=== PATIENT | male | born 1970 | race Caucasian/White ===

== ENCOUNTER 2018-09-14 18:55 | Inpatient (IN) | payer MEDICARE, OTHER ==
[2018-09-14] MEDS ORDERED: Sodium Chloride 0.9% 1,000 ML IV SCH ×2 (19:00→20:05)
[2018-09-14] MEDS ORDERED: Insulin Regular, Human 100 Units/ML 3 ML Vial IVPUSH ONE (19:08)
[2018-09-14] MEDS ORDERED: Insulin Regular, Human 100 Units/ML 3 ML Vial ONE (19:10)
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
[2018-09-14] MEDS ORDERED: cefTRIAXone 2 GM in Sodium Chloride 0.9% 50 ML IV ONE (19:31)
[2018-09-14] MEDS ORDERED: Levofloxacin/Dextrose 5%-Water 750 MG in Premix Bag 1 BAG IV ONE (19:31)
--- NOTE | 2018-09-14 19:46 | CRLCR ---
INDICATION: Cough, hypoxia. TECHNIQUE: Chest radiograph 1 view COMPARISON: None FINDINGS: Airspace opacification at the right lung base. Lesser degree of patchy opacification of the left upper lung zone. No definite pleural effusions or pneumothorax. Heart and mediastinal contours are within normal limits. No displaced rib fracture deformity. IMPRESSION: 1. Likely multifocal pneumonia with most significant opacification at the right lung base. Lesser degree of infiltrate suspected in the left upper lobe. Recommend imaging followup in 2-4 weeks to confirm complete resolution. Dictated by Jean Claude Jolly MD @ 09/14/2018 7:45:23 PM Dictated by: Jean Claude Jolly MD @ 09/14/2018 19:45:29 (Electronically Signed)
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
[2018-09-14] MEDS ORDERED: Ondansetron 4 MG Tab.DIS PO PRN (21:27)
[2018-09-14] MEDS ORDERED: 50% Dextrose in Water 50 ML Syringe IVPUSH PRN (21:27)
[2018-09-14] MEDS ORDERED: Acetaminophen 650 MG Supp RECTAL PRN (21:27)
[2018-09-14] MEDS ORDERED: Morphine 2 MG/ML Syringe IVPUSH PRN (21:27)
[2018-09-14] MEDS ORDERED: LORazepam 2 MG/ML SDV IVPUSH PRN (21:27)
[2018-09-14] MEDS ORDERED: Ondansetron 4 MG/2 ML SDV IV PRN (21:27)
[2018-09-14] MEDS ORDERED: Polyethylene Glycol 3350 Powder 17 GM Packet PO PRN (21:27)
[2018-09-14] MEDS ORDERED: Albuterol 0.083% 2.5 MG/3 ML Neb Soln NEB PRN (21:27)
[2018-09-14] MEDS: Sodium Chloride 0.9% 1,000 ML IV SCH (21:40)
[2018-09-14] MEDS: Albuterol/Ipratropium 3.0-0.5 MG/3 ML Neb Soln NEB SCH (21:53)
[2018-09-14] MEDS: Pantoprazole 40 MG Vial IV SCH (22:12)
[2018-09-14] MEDS: Acetaminophen 325 MG Tab PO PRN (23:20)
[2018-09-15] MEDS: Sodium Chloride 0.9% 1,000 ML IV SCH (05:20)
[2018-09-15] MEDS: Albuterol/Ipratropium 3.0-0.5 MG/3 ML Neb Soln NEB SCH ×4 (07:32→21:14)
[2018-09-15] MEDS: Enoxaparin 40 MG/0.4 ML Syringe SUBCUT SCH (09:00)
[2018-09-15] MEDS: Pantoprazole 40 MG Vial IV SCH ×2 (09:02→21:22)
--- NOTE | 2018-09-15 09:09 | PCM.PN ---
- General Info Date of Service: 09/15/18 Subjective Update: overnight the patient has remained tachycardic. Lactic acid levels trended down. Blood sugars have trended down. Anion gap is slowly improving. He reports ongoing feeling of generally not feeling well. He does report mild to moderate generalized abdominal pain. He continues to feel short of breath. He has been coughing and produces some sputum. He has not had any fevers. Functional Status: Reports: Pain Controlled - Review of Systems General: Reports: Weakness Pulmonary: Reports: Shortness of Breath, Cough Gastrointestinal: Reports: Abdominal Pain. Denies: Nausea - Patient Data Vitals - Most Recent: Last Vital Signs Temp 36.2 C 09/15/18 07:00 Pulse 123 H 09/15/18 07:33 Resp 34 H 09/15/18 07:00 BP 152/91 H 09/15/18 07:00 Pulse Ox 95 09/15/18 07:00 Weight - Most Recent: 72.62 kg I&O - Last 24 Hours: Intake & Output 09/14/18 09/15/18 09/15/18 22:59 06:59 14:59 Intake Total 1000 Output Total 775 300 Balance 225 -300 Lab Results Last 24 Hours: Laboratory Results - last 24 hr 09/14/18 09/14/18 09/14/18 Range/Units 18:50 18:50 19:00 WBC 32.8 H* (4.5-11.0) K/uL RBC 5.33 (4.30-5.90) M/uL Hgb 14.6 (12.0-15.0) g/dL Hct 46.1 (40.0-54.0) % MCV 87 (80-98) fL MCH 27 (27-31) pg MCHC 32 (32-36) % Plt Count 778 H (150-400) K/uL Add Manual Diff Yes Neutrophils % (Manual) 79 H (36-66) % Band Neutrophils % 7 (5-11) % Lymphocytes % (Manual) 3 L (24-44) % Monocytes % (Manual) 11 H (2-6) % Puncture Site Lt brachial ABG pH 6.970 L* (7.350-7.450) ABG pCO2 12.2 L* (35.0-42.0) mmHg ABG pO2 97.7 (75.0-100.0) mmHg ABG HCO3 2.7 L (22.0-26.0) mmol/L ABG Total CO2 2.7 L (23.0-27.0) mmol/L ABG O2 Saturation 93.6 L (95.0-98.0) % ABG O2 Content 19.3 (15.0-23.0) %vol ABG Base Excess -30.1 mm/L ABG Hemoglobin 14.9 (13.5-18.0) g/dL ABG Oxyhemoglobin 92.2 % ABG Carboxyhemoglobin 0.5 (0.0-1.6) % ABG Methemoglobin 1.0 % Ton Test N/a O2 Delivery Device Nasal cannula Oxygen Flow Rate 0 L Sodium (140-148) mmol/L Potassium (3.6-5.2) mmol/L Chloride (100-108) mmol/L Carbon Dioxide (21-32) mmol/L Anion Gap (5.0-14.0) mmol/L BUN (7-18) mg/dL Creatinine (0.8-1.3) mg/dL Est Cr Clr Drug Dosing mL/min Estimated GFR (MDRD) (>60) Glucose (74-106) mg/dL Lactic Acid (0.4-2.0) mmol/L Calcium (8.5-10.1) mg/dL Magnesium 3.0 H (1.8-2.4) mg/dL Total Bilirubin (0.2-1.0) mg/dL AST (15-37) U/L ALT (12-78) U/L Alkaline Phosphatase (46-116) U/L Total Protein (6.4-8.2) g/dL Albumin (3.4-5.0) g/dL Globulin (2.3-3.5) g/dL Albumin/Globulin Ratio (1.2-2.2) Urine Color Urine Appearance Urine pH (4.5-8.0) Ur Specific [place] (1.008-1.030) Urine Protein (NEGATIVE) mg/dL Urine Glucose (UA) (NEGATIVE) mg/dL Urine Ketones (NEGATIVE) mg/dL Urine Occult Blood (NEGATIVE) Urine Nitrite (NEGAITVE) Urine Bilirubin (NEGATIVE) Urine Urobilinogen (NORMAL) mg/dL Ur Leukocyte Esterase (NEGATIVE) Urine RBC (0-5) Urine WBC (0-5) Ur Epithelial Cells Amorphous Sediment Urine Bacteria Urine Mucus Ketones (NEGATIVE) 09/14/18 09/14/18 09/14/18 Range/Units 19:00 19:08 19:08 WBC (4.5-11.0) K/uL RBC (4.30-5.90) M/uL Hgb (12.0-15.0) g/dL Hct (40.0-54.0) % MCV (80-98) fL MCH (27-31) pg MCHC (32-36) % Plt Count (150-400) K/uL Add Manual Diff Neutrophils % (Manual) (36-66) % Band Neutrophils % (5-11) % Lymphocytes % (Manual) (24-44) % Monocytes % (Manual) (2-6) % Puncture Site ABG pH (7.350-7.450) ABG pCO2 (35.0-42.0) mmHg ABG pO2 (75.0-100.0) mmHg ABG HCO3 (22.0-26.0) mmol/L ABG Total CO2 (23.0-27.0) mmol/L ABG O2 Saturation (95.0-98.0) % ABG O2 Content (15.0-23.0) %vol ABG Base Excess mm/L ABG Hemoglobin (13.5-18.0) g/dL ABG Oxyhemoglobin % ABG Carboxyhemoglobin (0.0-1.6) % ABG Methemoglobin % Ton Test O2 Delivery Device Oxygen Flow Rate L Sodium 124 L (140-148) mmol/L Potassium 4.8 (3.6-5.2) mmol/L Chloride 85 L (100-108) mmol/L Carbon Dioxide 6 L (21-32) mmol/L Anion Gap 37.8 H (5.0-14.0) mmol/L BUN 33 H (7-18) mg/dL Creatinine 1.5 H (0.8-1.3) mg/dL Est Cr Clr Drug Dosing 54.03 mL/min Estimated GFR (MDRD) 50 L (>60) Glucose 613 H* (74-106) mg/dL Lactic Acid 2.2 H (0.4-2.0) mmol/L Calcium 10.4 H (8.5-10.1) mg/dL Magnesium (1.8-2.4) mg/dL Total Bilirubin 0.7 (0.2-1.0) mg/dL AST 23 (15-37) U/L ALT 17 (12-78) U/L Alkaline Phosphatase 223 H (46-116) U/L Total Protein 9.1 H (6.4-8.2) g/dL Albumin 2.1 L (3.4-5.0) g/dL Globulin 7.0 H (2.3-3.5) g/dL Albumin/Globulin Ratio 0.3 L (1.2-2.2) Urine Color Urine Appearance Urine pH (4.5-8.0) Ur Specific [place] (1.008-1.030) Urine Protein (NEGATIVE) mg/dL Urine Glucose (UA) (NEGATIVE) mg/dL Urine Ketones (NEGATIVE) mg/dL Urine Occult Blood (NEGATIVE) Urine Nitrite (NEGAITVE) Urine Bilirubin (NEGATIVE) Urine Urobilinogen (NORMAL) mg/dL Ur Leukocyte Esterase (NEGATIVE) Urine RBC (0-5) Urine WBC (0-5) Ur Epithelial Cells Amorphous Sediment Urine Bacteria Urine Mucus Ketones Large H (NEGATIVE) 09/14/18 09/14/18 09/14/18 Range/Units 21:52 22:02 22:02 WBC (4.5-11.0) K/uL RBC (4.30-5.90) M/uL Hgb (12.0-15.0) g/dL Hct (40.0-54.0) % MCV (80-98) fL MCH (27-31) pg MCHC (32-36) % Plt Count (150-400) K/uL Add Manual Diff Neutrophils % (Manual) (36-66) % Band Neutrophils % (5-11) % Lymphocytes % (Manual) (24-44) % Monocytes % (Manual) (2-6) % Puncture Site ABG pH (7.350-7.450) ABG pCO2 (35.0-42.0) mmHg ABG pO2 (75.0-100.0) mmHg ABG HCO3 (22.0-26.0) mmol/L ABG Total CO2 (23.0-27.0) mmol/L ABG O2 Saturation (95.0-98.0) % ABG O2 Content (15.0-23.0) %vol ABG Base Excess mm/L ABG Hemoglobin (13.5-18.0) g/dL ABG Oxyhemoglobin % ABG Carboxyhemoglobin (0.0-1.6) % ABG Methemoglobin % Ton Test O2 Delivery Device Oxygen Flow Rate L Sodium 127 L (140-148) mmol/L Potassium 4.7 (3.6-5.2) mmol/L Chloride 92 L (100-108) mmol/L Carbon Dioxide 6 L (21-32) mmol/L Anion Gap 33.7 H (5.0-14.0) mmol/L BUN 39 H (7-18) mg/dL Creatinine 1.5 H (0.8-1.3) mg/dL Est Cr Clr Drug Dosing 53.76 mL/min Estimated GFR (MDRD) 50 L (>60) Glucose 536 H* (74-106) mg/dL Lactic Acid 2.2 H (0.4-2.0) mmol/L Calcium 9.1 (8.5-10.1) mg/dL Magnesium (1.8-2.4) mg/dL Total Bilirubin (0.2-1.0) mg/dL AST (15-37) U/L ALT (12-78) U/L Alkaline Phosphatase (46-116) U/L Total Protein (6.4-8.2) g/dL Albumin (3.4-5.0) g/dL Globulin (2.3-3.5) g/dL Albumin/Globulin Ratio (1.2-2.2) Urine Color Yellow Urine Appearance Slightly cloudy Urine pH 5.0 (4.5-8.0) Ur Specific [place] 1.020 (1.008-1.030) Urine Protein 30 H (NEGATIVE) mg/dL Urine Glucose (UA) >1000 H (NEGATIVE) mg/dL Urine Ketones 150 H (NEGATIVE) mg/dL Urine Occult Blood Large (NEGATIVE) Urine Nitrite Negative (NEGAITVE) Urine Bilirubin Negative (NEGATIVE) Urine Urobilinogen Normal (NORMAL) mg/dL Ur Leukocyte Esterase Negative (NEGATIVE) Urine RBC 0-5 (0-5) Urine WBC 0-5 (0-5) Ur Epithelial Cells Rare Amorphous Sediment Few Urine Bacteria Moderate Urine Mucus Few Ketones (NEGATIVE) 09/15/18 09/15/18 09/15/18 Range/Units 02:00 02:00 05:57 WBC (4.5-11.0) K/uL RBC (4.30-5.90) M/uL Hgb (12.0-15.0) g/dL Hct (40.0-54.0) % MCV (80-98) fL MCH (27-31) pg MCHC (32-36) % Plt Count (150-400) K/uL Add Manual Diff Neutrophils % (Manual) (36-66) % Band Neutrophils % (5-11) % Lymphocytes % (Manual) (24-44) % Monocytes % (Manual) (2-6) % Puncture Site ABG pH (7.350-7.450) ABG pCO2 (35.0-42.0) mmHg ABG pO2 (75.0-100.0) mmHg ABG HCO3 (22.0-26.0) mmol/L ABG Total CO2 (23.0-27.0) mmol/L ABG O2 Saturation (95.0-98.0) % ABG O2 Content (15.0-23.0) %vol ABG Base Excess mm/L ABG Hemoglobin (13.5-18.0) g/dL ABG Oxyhemoglobin % ABG Carboxyhemoglobin (0.0-1.6) % ABG Methemoglobin % Ton Test O2 Delivery Device Oxygen Flow Rate L Sodium 126 L 126 L (140-148) mmol/L Potassium 4.4 4.1 (3.6-5.2) mmol/L Chloride 95 L 98 L (100-108) mmol/L Carbon Dioxide 9 L 10 L (21-32) mmol/L Anion Gap 26.4 H 22.1 H (5.0-14.0) mmol/L BUN 44 H 49 H (7-18) mg/dL Creatinine 1.5 H 1.6 H (0.8-1.3) mg/dL Est Cr Clr Drug Dosing 53.76 50.40 mL/min Estimated GFR (MDRD) 50 L 46 L (>60) Glucose 332 H 153 H (74-106) mg/dL Lactic Acid 1.9 (0.4-2.0) mmol/L Calcium 8.8 8.8 (8.5-10.1) mg/dL Magnesium (1.8-2.4) mg/dL Total Bilirubin (0.2-1.0) mg/dL AST (15-37) U/L ALT (12-78) U/L Alkaline Phosphatase (46-116) U/L Total Protein (6.4-8.2) g/dL Albumin (3.4-5.0) g/dL Globulin (2.3-3.5) g/dL Albumin/Globulin Ratio (1.2-2.2) Urine Color Urine Appearance Urine pH (4.5-8.0) Ur Specific [place] (1.008-1.030) Urine Protein (NEGATIVE) mg/dL Urine Glucose (UA) (NEGATIVE) mg/dL Urine Ketones (NEGATIVE) mg/dL Urine Occult Blood (NEGATIVE) Urine Nitrite (NEGAITVE) Urine Bilirubin (NEGATIVE) Urine Urobilinogen (NORMAL) mg/dL Ur Leukocyte Esterase (NEGATIVE) Urine RBC (0-5) Urine WBC (0-5) Ur Epithelial Cells Amorphous Sediment Urine Bacteria Urine Mucus Ketones (NEGATIVE) 09/15/18 Range/Units 05:57 WBC (4.5-11.0) K/uL RBC (4.30-5.90) M/uL Hgb (12.0-15.0) g/dL Hct (40.0-54.0) % MCV (80-98) fL MCH (27-31) pg MCHC (32-36) % Plt Count (150-400) K/uL Add Manual Diff Neutrophils % (Manual) (36-66) % Band Neutrophils % (5-11) % Lymphocytes % (Manual) (24-44) % Monocytes % (Manual) (2-6) % Puncture Site ABG pH (7.350-7.450) ABG pCO2 (35.0-42.0) mmHg ABG pO2 (75.0-100.0) mmHg ABG HCO3 (22.0-26.0) mmol/L ABG Total CO2 (23.0-27.0) mmol/L ABG O2 Saturation (95.0-98.0) % ABG O2 Content (15.0-23.0) %vol ABG Base Excess mm/L ABG Hemoglobin (13.5-18.0) g/dL ABG Oxyhemoglobin % ABG Carboxyhemoglobin (0.0-1.6) % ABG Methemoglobin % Ton Test O2 Delivery Device Oxygen Flow Rate L Sodium (140-148) mmol/L Potassium (3.6-5.2) mmol/L Chloride (100-108) mmol/L Carbon Dioxide (21-32) mmol/L Anion Gap (5.0-14.0) mmol/L BUN (7-18) mg/dL Creatinine (0.8-1.3) mg/dL Est Cr Clr Drug Dosing mL/min Estimated GFR (MDRD) (>60) Glucose (74-106) mg/dL Lactic Acid 1.7 (0.4-2.0) mmol/L Calcium (8.5-10.1) mg/dL Magnesium (1.8-2.4) mg/dL Total Bilirubin (0.2-1.0) mg/dL AST (15-37) U/L ALT (12-78) U/L Alkaline Phosphatase (46-116) U/L Total Protein (6.4-8.2) g/dL Albumin (3.4-5.0) g/dL Globulin (2.3-3.5) g/dL Albumin/Globulin Ratio (1.2-2.2) Urine Color Urine Appearance Urine pH (4.5-8.0) Ur Specific [place] (1.008-1.030) Urine Protein (NEGATIVE) mg/dL Urine Glucose (UA) (NEGATIVE) mg/dL Urine Ketones (NEGATIVE) mg/dL Urine Occult Blood (NEGATIVE) Urine Nitrite (NEGAITVE) Urine Bilirubin (NEGATIVE) Urine Urobilinogen (NORMAL) mg/dL Ur Leukocyte Esterase (NEGATIVE) Urine RBC (0-5) Urine WBC (0-5) Ur Epithelial Cells Amorphous Sediment Urine Bacteria Urine Mucus Ketones (NEGATIVE) Walter Results Last 24 Hours: Microbiology 09/15/18 01:45 Gram Stain - Final Sputum - Expectorated Med Orders - Current: Current Medications Acetaminophen (Tylenol) 650 mg PO Q4H PRN PRN Reason: Pain (Mild 1-3)/fever Last Admin: 09/14/18 23:20 Dose: 650 mg Acetaminophen (Tylenol) 650 mg RECTAL Q4H PRN PRN Reason: Mild pain/fever Albuterol (Proventil Neb Soln) 2.5 mg NEB Q4H PRN PRN Reason: Shortness Of Breath/wheezing Albuterol/Ipratropium (Duoneb 3.0-0.5 Mg/3 Ml) 3 ml NEB QIDRT [facility] Last Admin: 09/15/18 07:32 Dose: 3 ml Dextrose/Water (Dextrose 50% In Water) 50 ml IVPUSH ONETIME PRN PRN Reason: Blood Glucose Enoxaparin Sodium (Lovenox) 40 mg SUBCUT DAILY [facility] Last Admin: 09/15/18 09:00 Dose: 40 mg Levofloxacin/Dextrose 750 mg/ (Premix) 150 mls @ 100 mls/hr IV Q24H [facility] Sodium Chloride (Normal Saline) 1,000 mls @ 125 mls/hr IV ASDIRECTED [facility] Last Admin: 09/15/18 05:20 Dose: 125 mls/hr Insulin Human Regular 100 unit (/ Sodium Chloride) 100 mls @ 0.5 mls/hr IV TITRATE [facility]; Protocol Last Titration: 09/15/18 08:58 Dose: 3 unit/hr, 3 mls/hr Ceftriaxone Sodium 2 gm/ (Sodium Chloride) 50 mls @ 100 mls/hr IV Q24H [facility] Lorazepam (Ativan) 0.5 mg IVPUSH Q4H PRN PRN Reason: Anxiety Morphine Sulfate (Morphine) 2 mg IVPUSH Q2H PRN PRN Reason: Pain (severe 7-10) Ondansetron HCl (Zofran Odt) 4 mg PO Q6H PRN PRN Reason: Nausea able to take PO Ondansetron HCl (Zofran) 4 mg IV Q6H PRN PRN Reason: Nausea/Vomiting Pantoprazole Sodium (Protonix Iv) 40 mg IV Q12H [facility] Last Admin: 09/15/18 09:02 Dose: 40 mg Polyethylene Glycol (Miralax) 17 gm PO DAILY PRN PRN Reason: Constipation Senna/Docusate Sodium (Senna Plus) 1 tab PO BID PRN PRN Reason: Constipation Discontinued Medications Ceftriaxone Sodium 2 gm/ (Sodium Chloride) 50 mls @ 100 mls/hr IV ONETIME ONE Stop: 09/14/18 20:00 Last Admin: 09/14/18 19:55 Dose: 100 mls/hr Levofloxacin/Dextrose 750 mg/ (Premix) 150 mls @ 100 mls/hr IV ONETIME ONE Stop: 09/14/18 21:00 Last Admin: 09/14/18 19:54 Dose: 100 mls/hr Sodium Chloride (Normal Saline) 1,000 mls @ 999 mls/hr IV ASDIRECTED [facility] Last Admin: 09/14/18 19:10 Dose: 999 mls/hr Sodium Chloride (Normal Saline) 1,000 mls @ 999 mls/hr IV ASDIRECTED [facility] Last Admin: 09/14/18 20:10 Dose: 999 mls/hr Insulin Human Regular 100 unit (/ Sodium Chloride) 100 mls @ 0.5 mls/hr IV TITRATE [facility]; Protocol Last Titration: 09/15/18 08:04 Dose: 6 unit/hr, 6 mls/hr Insulin Human Regular (Humulin R) 8 unit IVPUSH ONETIME ONE Stop: 09/14/18 19:09 Last Admin: 09/14/18 19:16 Dose: 8 units Insulin Human Regular (Humulin R) Confirm Administered Dose 300 unit .ROUTE .STK -MED ONE Stop: 09/14/18 19:11 Last Admin: 09/14/18 19:15 Dose: Not Given - Exam Quality Assessment: No: Supplemental Oxygen General: Alert, Oriented, Cooperative, No Acute Distress HEENT: Pupils Equal Neck: Supple. No: JVD Lungs: Crackles (right lung base and mid lung, also left mid lung anteriorly ). No: Normal Respiratory Effort (increased work of breathing ) Cardiovascular: Regular Rhythm, Tachycardia GI/Abdominal Exam: Normal Bowel Sounds, Soft, No Distention, Tender (generalized ) Extremities: No Pedal Edema. No: Increased Warmth Skin: Warm, Dry Psy/Mental Status: Alert, Normal Affect - Problem List & Annotations (1) DKA (diabetic ketoacidoses) SNOMED Code(s): 117810186, 331789391 Code(s): E13.10 - OTH DIABETES MELLITUS WITH KETOACIDOSIS WITHOUT COMA Status: Acute Current Visit: Yes Qualifiers: Diabetes mellitus type: type 2 Diabetes mellitus complication detail: without coma Qualified Code(s): E11.10 - Type 2 diabetes mellitus with ketoacidosis without coma (2) Metabolic acidosis due to diabetes mellitus SNOMED Code(s): 561300279 Code(s): E11.69 - TYPE 2 DIABETES MELLITUS WITH OTHER SPECIFIED COMPLICATION ; E87.2 - ACIDOSIS Status: Acute Current Visit: Yes (3) Bilateral pneumonia SNOMED Code(s): 838323451 Code(s): J18.9 - PNEUMONIA, UNSPECIFIED ORGANISM Status: Acute Current Visit: Yes Qualifiers: Pneumonia type: due to unspecified organism Lung location: unspecified part of lung Qualified Code(s): J18.9 - Pneumonia, unspecified organism (4) Sepsis SNOMED Code(s): 41810721 Code(s): A41.9 - SEPSIS, UNSPECIFIED ORGANISM Status: Acute Current Visit : Yes Qualifiers: Sepsis type: sepsis due to unspecified organism Qualified Code(s): A41.9 - Sepsis, unspecified organism (5) Acute kidney injury SNOMED Code(s): 46734528 Code(s): N17.9 - ACUTE KIDNEY FAILURE, UNSPECIFIED Status: Acute Current Visit: Yes - Problem List Review Problem List Initiated/Reviewed/Updated: Yes - My Orders Last 24 Hours: My Active Orders 09/14/18 20:22 Resuscitation Status Routine 09/14/18 20:48 Communication Order [RC] ASDIRECTED Diabetes Education [RC] Click to Edit Notify Provider [RC] PRN 09/14/18 21:27 Patient Status [ADT] Routine Bedrest Bedside Commode [RC] ASDIRECTED Blood Glucose Check, Bedside [RC] Q1H Cardiac Monitoring [RC] Q6H Diabetes Education [RC] Click to Edit Intake and Output [RC] QSHIFT Notify Provider Vital Signs [RC] ASDIRECTED Oxygen Therapy [RC] PRN Pulse Oximetry [RC] CONTINUOUS RT Aerosol Therapy [RC] ASDIRECTED Up With Assistance [RC] ASDIRECTED VTE/DVT Education [RC] Per Unit Routine Vital Signs [RC] Q1HR Acetaminophen [Tylenol] 650 mg PO Q4H PRN Acetaminophen [Tylenol] 650 mg RECTAL Q4H PRN Albuterol [Proventil Neb Soln] 2.5 mg NEB Q4H PRN Dextrose 50% in Water 50 ml IVPUSH ONETIME PRN Docusate Sodium/Sennosides [Senna Plus] 1 tab PO BID PRN LORazepam [Ativan] 0.5 mg IVPUSH Q4H PRN Morphine 2 mg IVPUSH Q2H PRN Ondansetron [Zofran ODT] 4 mg PO Q6H PRN Ondansetron [Zofran] 4 mg IV Q6H PRN Polyethylene Glycol 3350 [MiraLAX] 17 gm PO DAILY PRN Sodium Chloride 0.9% [Normal Saline] 1,000 ml IV ASDIRECTED 09/14/18 21:30 Pantoprazole [ProTONIX IV] 40 mg IV Q12H 09/14/18 21:45 Albuterol/Ipratropium [DuoNeb 3.0-0.5 MG/3 ML] 3 ml NEB QIDRT 09/15/18 01:45 CULTURE RESPIRATORY + SMEAR [RM] Routine 09/15/18 02:15 Insulin Regular, Human [HumuLIN R] 100 unit Sodium Chloride 0.9% [Normal Saline] 99 ml IV TITRATE 09/15/18 09:00 Enoxaparin [Lovenox] 40 mg SUBCUT DAILY 09/15/18 09:07 oxyCODONE 5 mg PO Q4H PRN RT Acapella [RESPCARE] Routine 09/15/18 10:00 BASIC METABOLIC PANEL,BMP [CHEM] Q4H CBC W/O DIFF,HEMOGRAM [HEME] Routine (1) GLYCOSYLATED HEMOGLOBIN,HGBA1C [CHEM] Routine Vancomycin 1 gm Sodium Chloride 0.9% [Normal Saline] 250 ml IV Q12H 09/15/18 14:00 BASIC METABOLIC PANEL,BMP [CHEM] Q4H 09/15/18 18:00 cefTRIAXone [Rocephin] 2 gm Sodium Chloride 0.9% [Normal Saline] 50 ml IV Q24H 09/15/18 20:00 Levofloxacin/Dextrose 5%-Water [Levaquin in D5W 750 MG/150 ML] 750 mg Premix Bag 1 bag IV Q24H 09/15/18 Lunch Clear Liquid Diet [DIET] 09/16/18 05:00 CBC W/O DIFF,HEMOGRAM [HEME] Timed (1) COMPREHENSIVE METABOLIC PN,CMP [CHEM] Timed - Plan Plan:: ASSESSMENT AND PLAN - Severe diabetic ketoacidosis - anion gap and blood sugars have been steadily improving but an Does remain elevated. Symptomatically he is feeling a little better but still has some abdominal pain and tachypnea. Metabolic acidosis has been slowly improving. A1c was nearly 12. -Insulin drip -IV fluids with D5 normal saline and potassium -Every hour blood sugars -BMP every 4 hours, replace electrolytes as indicated -Transition to subcutaneous insulin when appropriate Bilateral pneumonia with sepsis - white blood cell count has trended down and lactic acidosis has resolved. He has not required supplemental oxygen but has been tachypneic. Gram stain from sputum sample revealed moderate gram-positive cocci. -Continue levofloxacin and ceftriaxone -add vancomycin -follow-up sputum culture -Follow-up blood cultures -Scheduled and as needed nebulizers -Supplement oxygen if needed Acute kidney injury - creatinine is 1.5 and I suspect this is probably twice his normal creatinine level. level has remained stable overnight and I'm still hopeful that the level will improve once his DKA is more optimally treated. -Management as above and repeat labs in the morning Maintenance issues - - DVT prophylaxis - enoxaparin - GI prophylaxis - PPI - Nutrition - clear liquids - Smalls catheter - not indicated at this time Disposition - I would anticipate discharge home after the hospital stay Omar Lombardi M.D.
[2018-09-15] MEDS: oxyCODONE 5 MG Tab PO PRN ×4 (09:32→23:38)
[2018-09-15 10:14] LABS: HEMOGLOBIN A1C 11.7 % (4.5-6.2)
[2018-09-15] MEDS: Dextrose 5%-0.9% NaCl with KCl 1,000 ML IV SCH ×2 (10:42→19:05)
[2018-09-15] MEDS: Acetaminophen 325 MG Tab PO PRN ×2 (14:18→23:38)
[2018-09-15] MEDS ORDERED: cefTRIAXone 2 GM in Sodium Chloride 0.9% 50 ML IV SCH ×2 (18:00→21:00)
[2018-09-15] MEDS ORDERED: Levofloxacin/Dextrose 5%-Water 750 MG in Premix Bag 1 BAG IV SCH (20:00)
[2018-09-15] MEDS ORDERED: Potassium Chloride 20 MEQ Tab.ER PO ONE (20:59)
[2018-09-15] MEDS ORDERED: Lidocaine 2% Jelly 10 ML Urojet MUCMEM ONE (22:59)
[2018-09-15] MEDS ORDERED: Lidocaine 2% Jelly 10 ML Urojet ONE (23:11)
[2018-09-16] MEDS: Dextrose 5%-0.9% NaCl with KCl 1,000 ML IV SCH ×2 (02:57→11:29)
[2018-09-16] MEDS: Albuterol/Ipratropium 3.0-0.5 MG/3 ML Neb Soln NEB SCH ×2 (07:00→10:36)
[2018-09-16] MEDS: oxyCODONE 5 MG Tab PO PRN (08:48)
[2018-09-16] MEDS: Enoxaparin 40 MG/0.4 ML Syringe SUBCUT SCH (08:50)
[2018-09-16] MEDS: Pantoprazole 40 MG Vial IV SCH (08:50)
[2018-09-16] MEDS ORDERED: Meropenem 1 GM in Sodium Chloride 0.9% 100 ML IV SCH (10:00)
--- NOTE | 2018-09-16 10:52 | CRLCT ---
INDICATION: Pneumonia, abdominal pain. TECHNIQUE: A CT volumetric acquisition was performed of the chest abdomen and pelvis without IV contrast. FINDINGS: CT images demonstrate dense consolidation of the right middle lobe with loss of the air bronchograms. The proximal portion of the medial and lateral segmental bronchi remain patent. Additional masslike areas of alveolar opacity are noted within the lateral aspect of the apical posterior segment left upper lobe and within the posterior medial aspect of both lower lobes as well as the anterior and lateral basal segments of the right lower lobe. The pulmonary vasculature appears of normal size with no evidence of interstitial edema. There is no evidence of cavitation within the airspace changes. Heart size appears normal. There are a few mildly enlarged lymph nodes noted within the peritracheal and subcarinal position. There is no evidence of pericardial fluid. There is a trace amount of pleural fluid within the lower thorax, right greater the left. Within the abdomen the unenhanced liver, spleen and pancreas appear normal. Gallbladder and bile ducts are normal size. The adrenal glands have normal morphology. The kidneys show symmetric enlargement and there is minimal perinephric fluid stranding but there is no evidence of calculus or hydronephrosis and no evidence of a focal masslike change within either kidney. The abdominal aorta appears normal. There is no evidence of retroperitoneal lymphadenopathy within the abdomen and pelvis. The small intestine appears normal. There are a few diverticula within the left colon but no evidence of active diverticulitis. Urinary bladder is contracted around a Smalls catheter. IMPRESSION: 1. Masslike areas of alveolar infiltration within both lungs particularly involving the right middle lobe. Findings suggests a possible atypical fungal pneumonia or perhaps an inflammatory process such as Thomas`s granulomatosis or pulmonary lymphoma. 2. Bilateral renal enlargement which may indicate diabetic nephropathy or acute interstitial nephritis. No evidence of a calculus or hydronephrosis. 3. Note: I discussed the exam findings were Dr. Lombardi at the completion of the study on 09/16/2018 at 10:45 a.m. Please note that all CT scans at this facility use dose modulation, iterative reconstruction, and/or weight-based dosing when appropriate to reduce radiation dose to as low as reasonably achievable. Dictated by Brian Cevallos MD @ Sep 16 2018 10:36AM Signed by Dr. Brian Cevallos @ Sep 16 2018 10:52AM
--- NOTE | 2018-09-16 11:34 | PCM.DCSUM1 ---
Discharge Summary - Hospital Course Brief History: 47-year-old male with history of poorly controlled diabetes mellitus presented with worsening cough, shortness of breath and altered mental state despite outpatient management for pneumonia. He was admitted for management of bilateral pneumonia, diabetic ketoacidosis with severe metabolic acidosis and acute kidney injury. Diagnosis: Stroke: No - Discharge Data Discharge Date: 09/16/18 Discharge Disposition: DC/Tfer to [place] [id number] Condition: Serious - Discharge Diagnosis/Problem(s) (1) DKA (diabetic ketoacidoses) SNOMED Code(s): 612091230, 668398732 ICD Code: E13.10 - OTH DIABETES MELLITUS WITH KETOACIDOSIS WITHOUT COMA Status: Acute Current Visit: Yes Qualifiers: Diabetes mellitus type: type 2 Diabetes mellitus complication detail: without coma Qualified Code(s): E11.10 - Type 2 diabetes mellitus with ketoacidosis without coma (2) Metabolic acidosis due to diabetes mellitus SNOMED Code(s): 994029912 ICD Code: E11.69 - TYPE 2 DIABETES MELLITUS WITH OTHER SPECIFIED COMPLICATION ; E87.2 - ACIDOSIS Status: Acute Current Visit: Yes (3) Bilateral pneumonia SNOMED Code(s): 364214262 ICD Code: J18.9 - PNEUMONIA, UNSPECIFIED ORGANISM Status: Acute Current Visit: Yes Qualifiers: Pneumonia type: due to unspecified organism Lung location: unspecified part of lung Qualified Code(s): J18.9 - Pneumonia, unspecified organism (4) Sepsis SNOMED Code(s): 20222630 ICD Code: A41.9 - SEPSIS, UNSPECIFIED ORGANISM Status: Acute Current Visit: Yes Qualifiers: Sepsis type: sepsis due to unspecified organism Qualified Code(s): A41.9 - Sepsis, unspecified organism (5) Acute kidney injury SNOMED Code(s): 68150280 ICD Code: N17.9 - ACUTE KIDNEY FAILURE, UNSPECIFIED Status: Acute Current Visit: Yes - Patient Summary/Data Labs Pending at D/C: Final results of blood and sputum cultures which have no growth at the time of discharge (approximately 40 hours since collection) Hospital Course: Juventino was brought to the emergency room after his son found him at home with a very high respiratory rate and minimally responsive. He had recently been diagnosed with pneumonia and treated with azithromycin for about 1 week but was not feeling better so he presented to the clinic the day before presentation. He was started on levofloxacin went home. The next day was when his son found him and had him sent to the emergency room. Workup in the emergency room revealed bilateral pneumonia with an impressive right middle lobe infiltrate as well as right lower lobe and left upper lobe infiltrates. Laboratory studies revealed diabetic ketoacidosis with a severe anion gap metabolic acidosis. His pH at presentation was 6.9 with a PCO2 of 12. Bicarbonate level was only 6. White blood cell count was significantly elevated at 32,000 and his blood sugar was over 600. His creatinine at the time of presentation was 1.5. Cultures were obtained in the emergency room and he received IV fluids are sepsis protocol as well as IV insulin. He was admitted to the intensive care unit for management of pneumonia and diabetic ketoacidosis. at the time of admission to the intensive care unit he was started on an insulin drip per the DKA. He received aggressive IV fluids. Initial antibiotic choices were levofloxacin and ceftriaxone. Overnight following admission he did have improvement in his blood sugars but his anion gap remained elevated at more than 20 the morning after admission. IV fluids and IV insulin were continued. His sputum sample displayed gram-positive cocci so vancomycin was added. His kidney function has been steadily declining throughout the first 24 hours of hospital stay with a creatinine up to 1.9 the evening following admission. He has not had a fever at this point and did not throughout the hospital stay. He has remained tachycardic around 120. Blood pressures have been stable. He has not required supplemental oxygen that we did provided to see if this would help with his respiratory rate. We continued the insulin infusion to try to further lower the anion gap throughout the second night of the hospital stay. He has remained tachycardic and tachypneic with a respiratory rate in the 30s. He has remained afebrile. Creatinine has risen further and is now up to 2.3 with a GFR down to 30. On the morning of transfer I did get a CT scan of the abdomen and pelvis without contrast. The CT of the chest showed a very large infiltrate and complete consolidation of the right middle lobe as well as patchy right lower lobe and left upper lobe infiltrates. CT scan of the abdomen and pelvis revealed enlarged and apparently swollen kidneys but no evidence for hydronephrosis. There is no other acute pathology in the abdomen or pelvis. His white count has trended down but this is the only reassuring lab value at this point. At this time I'm concerned about respiratory decompensation as well as renal decompensation. He has been on broad-spectrum antibiotics and despite this has not made significant improvement other than his white blood cell count has trended down. Cultures have been negative so far. I think a bronchoscopy would be very beneficial for further evaluation of his pneumonia and the right middle lobe should be a good target for a specimen. His kidney function has steadily declined throughout the hospital stay and I'm worried about a further decline. His diabetic ketoacidosis has improved but has not resolved. I think he would be best served in a tertiary care center at this time where specialties including pulmonology, nephrology and possibly infectious disease could provide additional care. I discussed the case with the on-call hospitalist at [facility] and he graciously accepted the patient transfer. He will be transferred by ambulance. He is stable for the most part I think the benefits of transfer greatly outweigh the risks at this time. - Patient Instructions Diet: Clear Liquid Diet Other/Special Instructions: Transfer to [facility]. Dx: Bilateral pneumonia , JOSE DAVID, DKA - Discharge Plan *PRESCRIPTION DRUG MONITORING PROGRAM REVIEWED*: Not Applicable *COPY OF PRESCRIPTION DRUG MONITORING REPORT IN PATIENT CINDY: Not Applicable Home Medications: Home Meds glipiZIDE [Glipizide ER] 5 mg PO BID 01/13/18 [History] Oxygen Therapy Mode: Room Air Patient Handouts: Community-Acquired Pneumonia, Adult, [id number] Referrals: PCP,None [Primary Care Provider] - - Discharge Summary/Plan Comment DC Time >30 min.: Yes (60 - transfer to acute Hospital) - Patient Data Vitals - Most Recent: Last Vital Signs Temp 36.8 C 09/16/18 11:00 Pulse 122 H 09/16/18 11:00 Resp 32 H 09/16/18 11:00 BP 164/89 H 09/16/18 11:00 Pulse Ox 96 09/16/18 11:00 Weight - Most Recent: 76.566 kg I&O - Last 24 hours: Intake & Output 09/15/18 09/16/18 09/16/18 22:59 06:59 14:59 Intake Total 1661 1713 100 Output Total 1060 205 Balance 1661 653 -105 Lab Results - Last 24 hrs: Laboratory Results - last 24 hr 09/15/18 09/15/18 09/15/18 Range/Units 13:55 16:09 20:26 WBC (4.5-11.0) K/uL RBC (4.30-5.90) M/uL Hgb (12.0-15.0) g/dL Hct (40.0-54.0) % MCV (80-98) fL MCH (27-31) pg MCHC (32-36) % Plt Count (150-400) K/uL Sodium 128 L 128 L 129 L (140-148) mmol/L Potassium 3.8 3.9 3.6 (3.6-5.2) mmol/L Chloride 101 101 101 (100-108) mmol/L Carbon Dioxide 10 L 12 L 13 L (21-32) mmol/L Anion Gap 20.8 H 18.9 H 18.6 H (5.0-14.0) mmol/L BUN 56 H 58 H 59 H (7-18) mg/dL Creatinine 1.8 H 1.9 H 2.1 H (0.8-1.3) mg/dL Est Cr Clr Drug Dosing 45.03 42.66 38.59 mL/min Estimated GFR (MDRD) 40 L 38 L 34 L (>60) Glucose 189 H 217 H 201 H (74-106) mg/dL Lactic Acid (0.4-2.0) mmol/L Calcium 8.7 8.7 8.7 (8.5-10.1) mg/dL Total Bilirubin (0.2-1.0) mg/dL AST (15-37) U/L ALT (12-78) U/L Alkaline Phosphatase (46-116) U/L Total Protein (6.4-8.2) g/dL Albumin (3.4-5.0) g/dL Globulin (2.3-3.5) g/dL Albumin/Globulin Ratio (1.2-2.2) 09/16/18 09/16/18 09/16/18 Range/Units 01:00 05:04 05:04 WBC 13.1 H (4.5-11.0) K/uL RBC 4.31 (4.30-5.90) M/uL Hgb 11.6 L (12.0-15.0) g/dL Hct 35.0 L (40.0-54.0) % MCV 81 (80-98) fL MCH 27 (27-31) pg MCHC 33 (32-36) % Plt Count 448 H (150-400) K/uL Sodium 131 L 132 L (140-148) mmol/L Potassium 3.9 3.5 L (3.6-5.2) mmol/L Chloride 106 105 (100-108) mmol/L Carbon Dioxide 11 L 11 L (21-32) mmol/L Anion Gap 17.9 H 19.5 H (5.0-14.0) mmol/L BUN 59 H 57 H (7-18) mg/dL Creatinine 2.2 H 2.3 H (0.8-1.3) mg/dL Est Cr Clr Drug Dosing 36.84 35.24 mL/min Estimated GFR (MDRD) 32 L 30 L (>60) Glucose 217 H 204 H (74-106) mg/dL Lactic Acid (0.4-2.0) mmol/L Calcium 8.5 8.5 (8.5-10.1) mg/dL Total Bilirubin 0.1 L D (0.2-1.0) mg/dL AST 28 (15-37) U/L ALT 14 (12-78) U/L Alkaline Phosphatase 123 H (46-116) U/L Total Protein 6.1 L (6.4-8.2) g/dL Albumin 1.3 L (3.4-5.0) g/dL Globulin 4.8 H (2.3-3.5) g/dL Albumin/Globulin Ratio 0.3 L (1.2-2.2) 09/16/18 Range/Units 09:12 WBC (4.5-11.0) K/uL RBC (4.30-5.90) M/uL Hgb (12.0-15.0) g/dL Hct (40.0-54.0) % MCV (80-98) fL MCH (27-31) pg MCHC (32-36) % Plt Count (150-400) K/uL Sodium (140-148) mmol/L Potassium (3.6-5.2) mmol/L Chloride (100-108) mmol/L Carbon Dioxide (21-32) mmol/L Anion Gap (5.0-14.0) mmol/L BUN (7-18) mg/dL Creatinine (0.8-1.3) mg/dL Est Cr Clr Drug Dosing mL/min Estimated GFR (MDRD) (>60) Glucose (74-106) mg/dL Lactic Acid 1.7 (0.4-2.0) mmol/L Calcium (8.5-10.1) mg/dL Total Bilirubin (0.2-1.0) mg/dL AST (15-37) U/L ALT (12-78) U/L Alkaline Phosphatase (46-116) U/L Total Protein (6.4-8.2) g/dL Albumin (3.4-5.0) g/dL Globulin (2.3-3.5) g/dL Albumin/Globulin Ratio (1.2-2.2) FATOU Results - Last 24 hrs: Microbiology 09/15/18 01:45 Gram Stain - Final Sputum - Expectorated Respiratory Culture - Preliminary NORMAL RESPIRATORY RODNEY 1 DAY 09/14/18 18:58 Aerobic Blood Culture - Preliminary Blood - Arm, Right NO GROWTH AFTER 1 DAY Anaerobic Blood Culture - Preliminary NO GROWTH AFTER 1 DAY 09/14/18 18:50 Aerobic Blood Culture - Preliminary Blood - Arm, Right NO GROWTH AFTER 1 DAY Anaerobic Blood Culture - Preliminary NO GROWTH AFTER 1 DAY Med Orders - Current: Current Medications Acetaminophen (Tylenol) 650 mg PO Q4H PRN PRN Reason: Pain (Mild 1-3)/fever Last Admin: 09/15/18 14:18 Dose: 650 mg Acetaminophen (Tylenol) 650 mg RECTAL Q4H PRN PRN Reason: Mild pain/fever Albuterol (Proventil Neb Soln) 2.5 mg NEB Q4H PRN PRN Reason: Shortness Of Breath/wheezing Albuterol/Ipratropium (Duoneb 3.0-0.5 Mg/3 Ml) 3 ml NEB QIDRT [facility] Last Admin: 09/16/18 10:36 Dose: 3 ml Dextrose/Water (Dextrose 50% In Water) 50 ml IVPUSH ONETIME PRN PRN Reason: Blood Glucose Enoxaparin Sodium (Lovenox) 40 mg SUBCUT DAILY [facility] Last Admin: 09/16/18 08:50 Dose: 40 mg Insulin Human Regular 100 unit (/ Sodium Chloride) 100 mls @ 0.5 mls/hr IV TITRATE RONAK; Protocol Last Titration: 09/16/18 11:01 Dose: 3 unit/hr, 3 mls/hr Potassium Chloride/Dextrose/Sod Cl (D5 Ns With 20 Meq Kcl) 1,000 mls @ 125 mls/ hr IV ASDIRECTED [facility] Last Admin: 09/16/18 02:57 Dose: 125 mls/hr Levofloxacin/Dextrose 750 mg/ (Premix) 150 mls @ 100 mls/hr IV Q48H RONAK Meropenem 1 gm/ Sodium (Chloride) 100 mls @ 200 mls/hr IV Q12H [facility] Last Admin: 09/16/18 10:05 Dose: 200 mls/hr Vancomycin HCl 1 gm/ Sodium (Chloride) 250 mls @ 167 mls/hr IV Q24H RONAK Lorazepam (Ativan) 0.5 mg IVPUSH Q4H PRN PRN Reason: Anxiety Morphine Sulfate (Morphine) 2 mg IVPUSH Q2H PRN PRN Reason: Pain (severe 7-10) Ondansetron HCl (Zofran Odt) 4 mg PO Q6H PRN PRN Reason: Nausea able to take PO Ondansetron HCl (Zofran) 4 mg IV Q6H PRN PRN Reason: Nausea/Vomiting Oxycodone HCl (Oxycodone) 5 mg PO Q4H PRN PRN Reason: Pain (moderate 4-6) Last Admin: 09/16/18 08:48 Dose: 5 mg Pantoprazole Sodium (Protonix Iv) 40 mg IV Q12H [facility] Last Admin: 09/16/18 08:50 Dose: 40 mg Polyethylene Glycol (Miralax) 17 gm PO DAILY PRN PRN Reason: Constipation Senna/Docusate Sodium (Senna Plus) 1 tab PO BID PRN PRN Reason: Constipation Discontinued Medications Ceftriaxone Sodium 2 gm/ (Sodium Chloride) 50 mls @ 100 mls/hr IV ONETIME ONE Stop: 09/14/18 20:00 Last Admin: 09/14/18 19:55 Dose: 100 mls/hr Levofloxacin/Dextrose 750 mg/ (Premix) 150 mls @ 100 mls/hr IV ONETIME ONE Stop: 09/14/18 21:00 Last Admin: 09/14/18 19:54 Dose: 100 mls/hr Sodium Chloride (Normal Saline) 1,000 mls @ 999 mls/hr IV ASDIRECTED RONAK Last Admin: 09/14/18 19:10 Dose: 999 mls/hr Sodium Chloride (Normal Saline) 1,000 mls @ 999 mls/hr IV ASDIRECTED [facility]ONAK Last Admin: 09/14/18 20:10 Dose: 999 mls/hr Insulin Human Regular 100 unit (/ Sodium Chloride) 100 mls @ 0.5 mls/hr IV TITRATE RONAK; Protocol Last Titration: 09/15/18 08:04 Dose: 6 unit/hr, 6 mls/hr Sodium Chloride (Normal Saline) 1,000 mls @ 125 mls/hr IV ASDIRECTED RONAK Last Admin: 09/15/18 05:20 Dose: 125 mls/hr Ceftriaxone Sodium 2 gm/ (Sodium Chloride) 50 mls @ 100 mls/hr IV Q24H [facility] Last Admin: 09/15/18 17:56 Dose: 100 mls/hr Vancomycin HCl 1 gm/ Sodium (Chloride) 250 mls @ 167 mls/hr IV Q12H [facility]ON[facility] Last Admin: 09/15/18 21:35 Dose: 167 mls/hr Insulin Human Regular (Humulin R) 8 unit IVPUSH ONETIME ONE Stop: 09/14/18 19:09 Last Admin: 09/14/18 19:16 Dose: 8 units Insulin Human Regular (Humulin R) Confirm Administered Dose 300 unit .ROUTE .STK -MED ONE Stop: 09/14/18 19:11 Last Admin: 09/14/18 19:15 Dose: Not Given Lidocaine HCl (Xylocaine 2% Jelly) 10 ml MUCMEM ONETIME ONE Stop: 09/15/18 23:00 Last Admin: 09/15/18 23:15 Dose: 10 ml Lidocaine HCl (Xylocaine 2% Jelly) Confirm Administered Dose 10 ml .ROUTE .STK- MED ONE Stop: 09/15/18 23:12 Last Admin: 09/15/18 23:19 Dose: Not Given Potassium Chloride (Klor-Con M20) 20 meq PO ONETIME ONE Stop: 09/15/18 21:00 Last Admin: 09/15/18 21:31 Dose: 20 meq - Exam Quality Assessment: Denies: Supplemental Oxygen General: Reports: Alert, Oriented, Cooperative, Moderate Distress HEENT: Reports: Pupils Reactive Neck: Reports: Supple Lungs: Reports: Decreased Breath Sounds (Right lung base), Crackles (right mid and lower lung and left upper lung). Denies: Normal Respiratory Effort ( Increased work of breathing with respiratory rate in the 30s), Wheezing Cardiovascular: Reports: Regular Rhythm, No Murmurs, Tachycardia GI/Abdominal Exam: Normal Bowel Sounds, Soft, Non-Tender, No Distention Extremities: No Pedal Edema. No: Increased Warmth Skin: Reports: Warm, Dry Psy/Mental Status: Reports: Alert, Anxious
[2018-09-16] MEDS ORDERED: Levofloxacin/Dextrose 5%-Water 750 MG in Premix Bag 1 BAG IV SCH (20:00)
== END 2018-09-16 12:30 | DRG 871 ==
LOC: JP.ED 18:55 → JP.ICU 20:21
PROVIDERS: ADMIT Internal Medicine; ATTEND Internal Medicine
DX: A41.9 Sepsis, unspecified organism (principal); J18.9 Pneumonia, unspecified organism; E11.10 Type 2 diabetes mellitus with ketoacidosis without coma; N17.9 Acute kidney failure, unspecified; E87.1 Hypo-osmolality and hyponatremia; E87.2 Acidosis; R06.03 Acute respiratory distress; R65.20 Severe sepsis without septic shock; Z91.14 Patient's other noncompliance with medication regimen; E11.65 Type 2 diabetes mellitus with hyperglycemia; E11.69 Type 2 diabetes mellitus with other specified complication; R41.82 Altered mental status, unspecified; Z79.84 Long term (current) use of oral hypoglycemic drugs; H54.7 Unspecified visual loss; R43.0 Anosmia; R43.2 Parageusia; V29.9XXS Motorcycle rider (driver) (passenger) injured in unspecified traffic accident, sequela
CPT/HCPCS: 36415; 36600; 71045; 80053; 82009; 82803; 82962; 83605; 83735; 85025; 87040 ×2; 96361; 96365; 96375; 99285 ×2; J0696; J1956; J7030 ×2; J7050; 51702; 71250; 74176; 80048; 81001; 83036; 85027; 87070; 87205; 94640; 94667; A9270-GY; C9113; J1650; J1815-GY; J2060; J2185; J3370; J3480; J7620-GY

== ENCOUNTER 2022-03-15 12:34 | Emergency (ER) | payer MEDICARE, OTHER ==
[2022-03-15] MEDS ORDERED: Piperacillin/Tazobactam/Dext 50 ML IV ONE (14:30)
[2022-03-15] MEDS ORDERED: Sodium Chloride 0.9% 1,000 ML IV ONE ×2 (14:30→17:00)
[2022-03-15] MEDS ORDERED: Insulin Regular in 0.9 % NACL 100 ML IV ONE (15:30)
[2022-03-15] MEDS ORDERED: Insulin Regular, Human 100 Units/ML 3 ML Vial ONE (17:00)
[2022-03-15] MEDS ORDERED: Prochlorperazine 10 MG/2 ML SDV ONE (17:00)
[2022-03-15] MEDS ORDERED: Ondansetron 4 MG/2 ML SDV ONE (17:00)
[2022-04-09 09:18] LABS: ESTIMATED GFR 31 mL/min (>60)
== END 2022-03-15 19:00 ==
LOC: JP.ED 12:34
DX: A41.9 Sepsis, unspecified organism (principal); L97.529 Non-pressure chronic ulcer of other part of left foot with unspecified severity; E86.0 Dehydration; R73.9 Hyperglycemia, unspecified
CPT/HCPCS: 36415; 71046; 73700; 80053; 81001; 82947; 83605; 85025; 87040; 87070; 87077; 87102; 87186; 87205; 93005; 96365; 96367; 96375; 99284; J0780; J1815; J2405; J2543; J3370; J7030; J7050

== ENCOUNTER 2024-05-21 10:42 | Inpatient (IN) | payer MEDICARE, MEDICAID ==
[2024-05-21] MEDS ORDERED: Sodium Chloride 0.9% 10 ML Syringe FLUSH PRN (11:33)
[2024-05-21] MEDS: Sodium Chloride 0.9% 1,000 ML IV STA (11:52)
[2024-05-21 11:54] LABS: BASOPHILS PERCENT AUTO 0.1 % (0.1-1.3); HEMATOCRIT 40.3 % (38.4-49.7); HEMOGLOBIN 12.9 g/dL (12.9-16.9); IMMATURE GRAN ABSOLUTE AUTO 0.04 K/uL (0.00-0.23); IMMATURE GRAN PERCENT AUTO 0.3 % (0.0-0.7); LYMPHOCYTES ABSOLUTE AUTO 0.87 K/uL (0.8-3.3); LYMPHOCYTES PERCENT AUTO 6.4 % (11.4-47.7); MEAN CORPUSCULAR HEMOGLOBIN 28.2 pg (31.6-35.5); MEAN CORPUSCULAR VOLUME 88.2 fL (81.4-99.0); MONOCYTES ABSOLUTE AUTO 1.04 K/uL (0.20-0.90); MONOCYTES PERCENT AUTO 7.6 % (3.3-12.6); NEUTROPHILS ABSOLUTE AUTO 11.72 K/uL (1.0-7.6); NEUTROPHILS PERCENT AUTO 85.6 % (40.0-78.1); PLATELET COUNT,PLT 234 K/uL (130-375); RED BLOOD CELL COUNT 4.57 M/uL (4.14-5.76); WHITE BLOOD CELL COUNT,WBC 13.7 K/uL (3.2-11.0)
[2024-05-21 11:55] LABS: BASOPHILS ABSOLUTE AUTO 0.01 K/uL (0.00-0.10)
[2024-05-21] MEDS: Ondansetron 4 MG/2 ML SDV IVPUSH ONE (11:55)
[2024-05-21] MEDS: fentaNYL 100 MCG/2 ML SDV IVPUSH ONE ×2 (12:06→14:38)
[2024-05-21 12:21] LABS: A/G RATIO 0.7 (1.2-2.2); ALANINE AMINOTRANSFERASE,ALT 29 U/L (12-78); ALBUMIN 2.9 g/dL (3.4-5.0); ALKALINE PHOSPHATASE 276 U/L (46-116); ANION GAP 22.6 mmol/L (5.0-14.0); ASPARTATE AMNIOTRANSFERASE,AST 26 U/L (15-37); BILIRUBIN TOTAL 1.7 mg/dL (0.2-1.0); BLOOD UREA NITROGEN,BUN 54 mg/dL (7-18); CALCIUM 9.6 mg/dL (8.5-10.1); CARBON DIOXIDE,CO2 18 mmol/L (21-32); CHLORIDE,CL 106 mmol/L (100-108); CREATININE 3.2 mg/dL (0.8-1.3); EST CRCL DRUG DOSING (CG) 23.54 mL/min; ESTIMATED GFR 22 mL/min (>60); GLUCOSE RANDOM 124 mg/dL (74-106); POTASSIUM,K 4.6 mmol/L (3.6-5.2); PROTEIN TOTAL,TP 7.2 g/dL (6.4-8.2); SODIUM,NA 142 mmol/L (140-148)
[2024-05-21] MEDS ORDERED: droPERidol 5 MG/2 ML SDV IVPUSH ONE (12:55)
[2024-05-21] MEDS: Prochlorperazine 10 MG/2 ML SDV IVPUSH ONE (13:01)
[2024-05-21] MEDS ORDERED: Ondansetron 4 MG Tab.DIS PO PRN (15:58)
[2024-05-21] MEDS ORDERED: Acetaminophen 325 MG Tab PO PRN (15:58)
[2024-05-21] MEDS ORDERED: Glucagon,Human Recombinant 1 MG Vial IM PRN (15:58)
[2024-05-21] MEDS ORDERED: 50% Dextrose in Water 50 ML Syringe IVPUSH PRN (15:58)
[2024-05-21] MEDS: oxyCODONE 5 MG Tab PO PRN (16:29)
[2024-05-21] MEDS: Bumetanide 2.5 MG/10 ML MDV IVPUSH SCH (16:55)
[2024-05-21] MEDS: Insulin Lispro 100 Unit/ML 3 ML KwikPen SUBCUT SCH (17:01)
[2024-05-21] MEDS: Pantoprazole 40 MG Vial IV SCH (17:08)
[2024-05-21] MEDS: Enoxaparin 30 MG/0.3 ML Syringe SUBCUT SCH (17:09)
[2024-05-21 19:03] LABS: APPEARANCE,URINE CLEAR (CLEAR); BILIRUBIN,URINE NEGATIVE (NEGATIVE); COLOR,URINE YELLOW (YELLOW); GLUCOSE,URINE NEGATIVE (NEGATIVE); KETONES,URINE TRACE mg/dL (NEGATIVE); LEUKOCYTE ESTERASE,URINE NEGATIVE (NEGATIVE); NITRITE,URINE NEGATIVE (NEGATIVE); OCCULT BLOOD,URINE NEGATIVE (NEGATIVE); PROTEIN,URINE >=300 mg/dL (NEGATIVE); UROBILINOGEN,URINE 0.2 EU/dL (0.2-1.0)
[2024-05-21 19:11] LABS: AMORPHOUS SEDIMENT,URINE NOT SEEN; BACTERIA,URINE FEW; EPITHELIAL CELLS,URINE RARE; MUCUS,URINE RARE; RBC,URINE 0-5 (0-5); WBC,URINE 0-5 (0-5)
[2024-05-21 19:23] LABS: PROTEIN CREATININE RATIO,URINE 2249.4 mg/g (22.0-128.0); PROTEIN,URINE RANDOM 186.7 mg/dL (6.0-11.9)
[2024-05-21] MEDS: Insulin Glargine,Human Rec. Analog 100 Units/ML 3 ML Pen SUBCUT SCH (22:18)
[2024-05-21] MEDS: Lactobacillus Rhamnosus GG (Probiotic) Cap PO SCH (22:18)
[2024-05-22 04:45] LABS: HEMATOCRIT 35.9 % (38.4-49.7); HEMOGLOBIN 11.8 g/dL (12.9-16.9); MEAN CORPUSCULAR HGB CONC 32.9 g/dL (31.6-35.5); MEAN CORPUSCULAR VOLUME 88.2 fL (81.4-99.0); RED BLOOD CELL COUNT 4.07 M/uL (4.14-5.76); WHITE BLOOD CELL COUNT,WBC 12.7 K/uL (3.2-11.0)
[2024-05-22 05:09] LABS: A/G RATIO 0.6 (1.2-2.2); ALANINE AMINOTRANSFERASE,ALT 26 U/L (12-78); ALBUMIN 2.4 g/dL (3.4-5.0); ALKALINE PHOSPHATASE 221 U/L (46-116); ANION GAP 13.5 mmol/L (5.0-14.0); ASPARTATE AMNIOTRANSFERASE,AST 22 U/L (15-37); BILIRUBIN TOTAL 0.9 mg/dL (0.2-1.0); BLOOD UREA NITROGEN,BUN 57 mg/dL (7-18); CALCIUM 8.6 mg/dL (8.5-10.1); CARBON DIOXIDE,CO2 21 mmol/L (21-32); CHLORIDE,CL 107 mmol/L (100-108); CREATININE 3.4 mg/dL (0.8-1.3); EST CRCL DRUG DOSING (CG) 22.15 mL/min; ESTIMATED GFR 20 mL/min (>60); GLUCOSE RANDOM 179 mg/dL (74-106); POTASSIUM,K 4.8 mmol/L (3.6-5.2); PROTEIN TOTAL,TP 6.4 g/dL (6.4-8.2); SODIUM,NA 141 mmol/L (140-148)
[2024-05-22] MEDS: Bumetanide 1 MG/4 ML MDV ONE (05:40)
[2024-05-22] MEDS: Pantoprazole 40 MG Tab.CR PO SCH (08:25)
[2024-05-22] MEDS: Bumetanide 2.5 MG/10 ML MDV IVPUSH SCH ×2 (11:53→23:42)
[2024-05-22] MEDS ORDERED: Bumetanide 1 MG/4 ML MDV IVPUSH SCH (17:00)
[2024-05-23 04:38] LABS: HEMATOCRIT 36.2 % (38.4-49.7); HEMOGLOBIN 11.9 g/dL (12.9-16.9); MEAN CORPUSCULAR HEMOGLOBIN 28.7 pg (31.6-35.5); MEAN CORPUSCULAR HGB CONC 32.9 g/dL (31.6-35.5); MEAN CORPUSCULAR VOLUME 87.4 fL (81.4-99.0); RED BLOOD CELL COUNT 4.14 M/uL (4.14-5.76); WHITE BLOOD CELL COUNT,WBC 10.2 K/uL (3.2-11.0)
[2024-05-23 04:56] LABS: CREATININE 3.3 mg/dL (0.8-1.3); EST CRCL DRUG DOSING (CG) 22.82 mL/min; MAGNESIUM 1.8 mg/dL (1.8-2.4); POTASSIUM,K 4.2 mmol/L (3.6-5.2)
[2024-05-23 04:58] LABS: ANION GAP 13.2 mmol/L (5.0-14.0)
[2024-05-23] MEDS: Bumetanide 1 MG/4 ML MDV IVPUSH SCH (11:44)
[2024-05-24 06:01] LABS: CALCIUM 7.7 mg/dL (8.5-10.1); CREATININE 3.2 mg/dL (0.8-1.3); EST CRCL DRUG DOSING (CG) 23.54 mL/min; POTASSIUM,K 3.5 mmol/L (3.6-5.2)
[2024-05-24 06:18] LABS: ANION GAP 13.5 mmol/L (5.0-14.0)
[2024-05-24] MEDS: Potassium Chloride 20 MEQ Tab.ER PO ONE ×2 (08:26→16:51)
[2024-05-24] MEDS: LORazepam 0.5 MG Tab PO ONE (11:51)
[2024-05-24 23:18] LABS: COMPLEMENT COMPONENT 3 105 mg/dL (90-180); COMPLEMENT COMPONENT 4 23 mg/dL (10-40)
[2024-05-25 00:08] LABS: ANTI-NUCLEAR AB ANA,IGG ELISA None Detected (None Detected)
[2024-05-25] MEDS: Potassium Chloride 20 MEQ Tab.ER PO ONE (10:47)
[2024-05-25 16:25] LABS: HEPATITIS A ANTIBODY, IGM Negative (Negative); HEPATITIS B CORE ANTIBODY, IGM Negative (Negative); HEPATITIS B SURFACE ANTIGEN Negative (Negative); HEPATITIS C AB CIA INTERP Negative (Negative); HEPATITIS C ANTIBODY CIA INDEX 0.11 IV
[2024-05-25] MEDS: Bumetanide 1 MG/4 ML MDV IVPUSH SCH (19:59)
[2024-05-25 21:18] LABS: ALBUMIN 2.78 g/dL (3.75-5.01); ALPHA 1 GLOBULIN 0.34 g/dL (0.19-0.46); ALPHA 2 GLOBULIN 0.65 g/dL (0.48-1.05); BETA GLOBULIN 0.99 g/dL (0.48-1.10); GAMMA 1.13 g/dL (0.62-1.51); TOTAL PROTEIN,SERUM 5.8 g/dL (6.3-8.2)
[2024-05-26 05:30] LABS: ANION GAP 7.1 mmol/L (5.0-14.0); CALCIUM 7.9 mg/dL (8.5-10.1); CREATININE 3.2 mg/dL (0.8-1.3); EST CRCL DRUG DOSING (CG) 23.54 mL/min; MAGNESIUM 1.5 mg/dL (1.8-2.4); POTASSIUM,K 3.8 mmol/L (3.6-5.2)
[2024-05-26] MEDS: Magnesium Sulfate/Water Premix 2 GM in Premix Bag 1 BAG IV SCH (12:09)
[2024-05-26] MEDS: Potassium Chloride 20 MEQ Tab.ER PO ONE (14:39)
[2024-05-26 15:45] LABS: TREPONEMA PALLIDUM AB BY TP-PA Non Reactive (Non Reactive)
[2024-05-26] MEDS: Sacubitril/Valsartan 24 MG-26 MG Tab PO SCH (16:37)
[2024-05-26] MEDS: Carvedilol 3.125 MG Tab PO SCH (16:37)
[2024-05-26] MEDS: Apixaban 5 MG Tab PO SCH ×2 (17:37→21:47)
[2024-05-27 05:29] LABS: CALCIUM 7.9 mg/dL (8.5-10.1); CREATININE 3.1 mg/dL (0.8-1.3); EST CRCL DRUG DOSING (CG) 24.3 mL/min; MAGNESIUM 2.1 mg/dL (1.8-2.4)
[2024-05-28] MEDS: Hypromellose 0.3% Ophth Soln 15 ML Bottle EYEBOTH PRN (14:08)
[2024-05-29 02:46] LABS: CRYOGLOBULIN QUALITATIVE SCRN NEG 72Hour (NEG 72Hour)
[2024-05-29 05:30] LABS: CALCIUM 8.2 mg/dL (8.5-10.1); EST CRCL DRUG DOSING (CG) 21.52 mL/min; MAGNESIUM 1.8 mg/dL (1.8-2.4); POTASSIUM,K 4.2 mmol/L (3.6-5.2)
[2024-05-29 05:41] LABS: ANION GAP 11.2 mmol/L (5.0-14.0)
[2024-05-29 05:42] LABS: CREATININE 3.5 mg/dL (0.8-1.3)
[2024-05-29] MEDS ORDERED: Bumetanide 1 MG Tab PO SCH (09:00)
[2024-05-29] MEDS: Ondansetron 4 MG/2 ML SDV IV PRN (09:38)
[2024-05-30 06:07] LABS: ANION GAP 9.5 mmol/L (5.0-14.0); CALCIUM 8.5 mg/dL (8.5-10.1); EST CRCL DRUG DOSING (CG) 20.36 mL/min; MAGNESIUM 1.9 mg/dL (1.8-2.4); POTASSIUM,K 4.5 mmol/L (3.6-5.2)
[2024-05-30 06:09] LABS: CREATININE 3.7 mg/dL (0.8-1.3)
[2024-05-31 08:04] LABS: CALCIUM 8.5 mg/dL (8.5-10.1); EST CRCL DRUG DOSING (CG) 20.36 mL/min; POTASSIUM,K 4.7 mmol/L (3.6-5.2)
[2024-05-31 08:08] LABS: ANION GAP 12.7 mmol/L (5.0-14.0)
[2024-05-31 08:09] LABS: CREATININE 3.7 mg/dL (0.8-1.3)
[2024-05-31] MEDS: Sennosides/Docusate Sodium 50-8.6 MG Tab PO ONE (10:07)
== END 2024-05-31 14:40 | disposition home or self-care (01) | DRG 391 ==
LOC: JP.ED 10:42 → JP.MS 13:55
PROVIDERS: ADMIT Internal Medicine; ATTEND Internal Medicine
DX: R11.2 Nausea with vomiting, unspecified (principal); K52.9 Noninfective gastroenteritis and colitis, unspecified; I50.21 Acute systolic (congestive) heart failure; N18.4 Chronic kidney disease, stage 4 (severe); N18.9 Chronic kidney disease, unspecified; E87.20 Acidosis, unspecified; E11.22 Type 2 diabetes mellitus with diabetic chronic kidney disease; H54.7 Unspecified visual loss; E78.00 Pure hypercholesterolemia, unspecified; J44.9 Chronic obstructive pulmonary disease, unspecified; F41.9 Anxiety disorder, unspecified; F32.A Depression, unspecified; E86.0 Dehydration; E87.6 Hypokalemia; E83.42 Hypomagnesemia; I51.3 Intracardiac thrombosis, not elsewhere classified; Z79.4 Long term (current) use of insulin; Z79.899 Other long term (current) drug therapy; Z87.81 Personal history of (healed) traumatic fracture
CPT/HCPCS: 36415; 51702; 80048; 80053; 80074; 81001; 82009; 82570; 82595; 82947; 83605; 83735; 83880; 84145; 84155; 84156; 84165; 85025; 85027; 86038; 86160; 86334; 86780; 93306; 96361; 96374; 96375; 97161-GP; 97530-GP; 99232; 99239; 99284-25; 99285; A9270-GY; J0780; J1650; J1815; J1815-GY; J1939; J2405; J2470; J3010; J3475; J3490; J7030

== ENCOUNTER 2024-07-13 12:57 | Inpatient (IN) | payer MEDICARE, MEDICAID ==
[2024-07-13 14:29] LABS: BASOPHILS PERCENT AUTO 0.1 % (0.1-1.3); EOSINOPHILS ABSOLUTE AUTO 0.07 K/uL (0.00-0.40); EOSINOPHILS PERCENT AUTO 0.8 % (0.0-5.4); HEMOGLOBIN 9.7 g/dL (12.9-16.9); IMMATURE GRAN ABSOLUTE AUTO 0.04 K/uL (0.00-0.23); IMMATURE GRAN PERCENT AUTO 0.4 % (0.0-0.7); LYMPHOCYTES ABSOLUTE AUTO 0.99 K/uL (0.8-3.3); MEAN CORPUSCULAR HEMOGLOBIN 28.4 pg (31.6-35.5); MEAN CORPUSCULAR HGB CONC 32.3 g/dL (31.6-35.5); MEAN CORPUSCULAR VOLUME 87.7 fL (81.4-99.0); MONOCYTES ABSOLUTE AUTO 0.89 K/uL (0.20-0.90); MONOCYTES PERCENT AUTO 9.9 % (3.3-12.6); NEUTROPHILS ABSOLUTE AUTO 7.01 K/uL (1.0-7.6); NEUTROPHILS PERCENT AUTO 77.8 % (40.0-78.1); PLATELET COUNT,PLT 213 K/uL (130-375); RED BLOOD CELL COUNT 3.42 M/uL (4.14-5.76)
[2024-07-13 14:31] LABS: BASOPHILS ABSOLUTE AUTO 0.01 K/uL (0.00-0.10)
[2024-07-13 14:57] LABS: A/G RATIO 0.6 (1.2-2.2); ALANINE AMINOTRANSFERASE,ALT 29 U/L (12-78); ALBUMIN 2.8 g/dL (3.4-5.0); ALKALINE PHOSPHATASE 451 U/L (46-116); ASPARTATE AMNIOTRANSFERASE,AST 26 U/L (15-37); BLOOD UREA NITROGEN,BUN 67 mg/dL (7-18); CALCIUM 8.5 mg/dL (8.5-10.1); CARBON DIOXIDE,CO2 23 mmol/L (21-32); CHLORIDE,CL 100 mmol/L (100-108); CREATININE 3.2 mg/dL (0.8-1.3); EST CRCL DRUG DOSING (CG) 23.54 mL/min; ESTIMATED GFR 22 mL/min (>60); GLUCOSE RANDOM 166 mg/dL (74-106); POTASSIUM,K 4.3 mmol/L (3.6-5.2); PROTEIN TOTAL,TP 7.6 g/dL (6.4-8.2); SODIUM,NA 134 mmol/L (140-148); TROPONIN I HIGH SENSITIVITY 28.2 pg/mL (<=60.3)
[2024-07-13 15:16] LABS: ANION GAP 15.3 mmol/L (5.0-14.0)
[2024-07-13 15:17] LABS: PRO B-TYPE NATRIUR PEPT,BNPPRO 120580 pg/mL (5-125)
[2024-07-13] MEDS: Bumetanide 1 MG/4 ML MDV IVPUSH ONE (15:50)
[2024-07-13] MEDS: Sodium Chloride 0.9% 10 ML Syringe FLUSH PRN (15:53)
[2024-07-13] MEDS: traMADol 50 MG Tab PO ONE (16:08)
[2024-07-13] MEDS: Acetaminophen/oxyCODONE 325-5 MG Tab PO PRN (17:41)
[2024-07-13] MEDS ORDERED: Bumetanide 2.5 MG/10 ML MDV IVPUSH SCH (19:30)
[2024-07-13] MEDS: Pantoprazole 40 MG Vial IVPUSH SCH (22:30)
[2024-07-13] MEDS ORDERED: Naloxone 0.4 MG/ML SDV IVPUSH PRN (23:13)
[2024-07-13] MEDS ORDERED: Bisacodyl 5 MG Tab PO PRN (23:13)
[2024-07-13] MEDS ORDERED: Glucagon,Human Recombinant 1 MG Vial IM PRN (23:13)
[2024-07-13] MEDS ORDERED: 50% Dextrose in Water 50 ML Syringe IVPUSH PRN (23:13)
[2024-07-13] MEDS ORDERED: Morphine 2 MG/ML SYRINGE IVPUSH PRN (23:13)
[2024-07-13] MEDS ORDERED: Ondansetron 4 MG/2 ML SDV IV PRN (23:13)
[2024-07-13] MEDS ORDERED: Insulin Lispro 100 Unit/ML 3 ML KwikPen SUBCUT SCH (23:13)
[2024-07-13] MEDS: Isosorbide Dinitrate 10 MG Tab PO SCH (23:49)
[2024-07-13] MEDS: traMADol 50 MG Tab PO PRN (23:49)
[2024-07-13] MEDS: hydrALAZINE 10 MG Tab PO SCH (23:50)
[2024-07-13] MEDS: Apixaban 5 MG Tab PO SCH (23:51)
[2024-07-13] MEDS: Insulin Glargine,Human Rec. Analog 100 Units/ML 3 ML Pen SUBCUT SCH (23:54)
[2024-07-13] MEDS: Bumetanide 2.5 MG/10 ML MDV IVPUSH SCH (23:57)
[2024-07-14 05:59] LABS: BASOPHILS PERCENT AUTO 0.2 % (0.1-1.3); EOSINOPHILS ABSOLUTE AUTO 0.09 K/uL (0.00-0.40); EOSINOPHILS PERCENT AUTO 1.4 % (0.0-5.4); HEMATOCRIT 27.6 % (38.4-49.7); HEMOGLOBIN 8.9 g/dL (12.9-16.9); IMMATURE GRAN PERCENT AUTO 0.3 % (0.0-0.7); LYMPHOCYTES ABSOLUTE AUTO 0.93 K/uL (0.8-3.3); LYMPHOCYTES PERCENT AUTO 14.1 % (11.4-47.7); MEAN CORPUSCULAR HGB CONC 32.2 g/dL (31.6-35.5); MEAN CORPUSCULAR VOLUME 86.8 fL (81.4-99.0); MONOCYTES ABSOLUTE AUTO 0.85 K/uL (0.20-0.90); MONOCYTES PERCENT AUTO 12.9 % (3.3-12.6); NEUTROPHILS ABSOLUTE AUTO 4.69 K/uL (1.0-7.6); NEUTROPHILS PERCENT AUTO 71.1 % (40.0-78.1); PLATELET COUNT,PLT 200 K/uL (130-375); RED BLOOD CELL COUNT 3.18 M/uL (4.14-5.76); WHITE BLOOD CELL COUNT,WBC 6.6 K/uL (3.2-11.0)
[2024-07-14 06:04] LABS: APPEARANCE,URINE CLEAR (CLEAR); BILIRUBIN,URINE NEGATIVE (NEGATIVE); COLOR,URINE YELLOW (YELLOW); GLUCOSE,URINE NEGATIVE (NEGATIVE); KETONES,URINE NEGATIVE (NEGATIVE); LEUKOCYTE ESTERASE,URINE NEGATIVE (NEGATIVE); NITRITE,URINE NEGATIVE (NEGATIVE); OCCULT BLOOD,URINE TRACE-LYSED (NEGATIVE); PH,URINE 5.5 (5.0-8.0); PROTEIN,URINE 30 mg/dL (NEGATIVE); UROBILINOGEN,URINE 0.2 EU/dL (0.2-1.0)
[2024-07-14 06:08] LABS: BASOPHILS ABSOLUTE AUTO 0.01 K/uL (0.00-0.10); IMMATURE GRAN ABSOLUTE AUTO 0.02 K/uL (0.00-0.23)
[2024-07-14] MEDS ORDERED: Bumetanide 2.5 MG/10 ML MDV IVPUSH ONE (06:10)
[2024-07-14 06:12] LABS: CALCIUM 7.9 mg/dL (8.5-10.1); EST CRCL DRUG DOSING (CG) 25.11 mL/min; POTASSIUM,K 3.5 mmol/L (3.6-5.2)
[2024-07-14 06:15] LABS: ANION GAP 16.5 mmol/L (5.0-14.0)
[2024-07-14 06:16] LABS: AMORPHOUS SEDIMENT,URINE NOT SEEN; BACTERIA,URINE FEW; EPITHELIAL CELLS,URINE RARE; MUCUS,URINE NOT SEEN; RBC,URINE 0-5 (0-5); WBC,URINE 0-5 (0-5)
[2024-07-14] MEDS: Bumetanide 1 MG/4 ML MDV IVPUSH ONE (07:44)
[2024-07-14] MEDS: Carvedilol 3.125 MG Tab PO SCH (09:37)
[2024-07-14] MEDS: Insulin Lispro 100 Unit/ML 3 ML KwikPen SUBCUT SCH (09:37)
[2024-07-14] MEDS: Apixaban 2.5 MG Tab PO SCH (09:37)
[2024-07-14] MEDS: Potassium Chloride 20 MEQ Tab.ER PO ONE (09:38)
[2024-07-14] MEDS: Warfarin 5 MG Tab PO SCH (13:45)
[2024-07-14] MEDS: Bumetanide 2.5 MG/10 ML MDV IVPUSH SCH (17:45)
[2024-07-14] MEDS ORDERED: Bumetanide 2.5 MG/10 ML MDV IVPUSH SCH (19:00)
[2024-07-14] MEDS: oxyCODONE 5 MG Tab PO PRN (22:07)
[2024-07-15 06:25] LABS: CALCIUM 8.2 mg/dL (8.5-10.1); CREATININE 2.9 mg/dL (0.8-1.3); EST CRCL DRUG DOSING (CG) 25.97 mL/min; INR 1.2; POTASSIUM,K 3.6 mmol/L (3.6-5.2); PROTHROMBIN TIME 11.8 sec (9.2-10.6)
[2024-07-15 06:28] LABS: ANION GAP 15.6 mmol/L (5.0-14.0)
[2024-07-15] MEDS: Insulin Glargine,Human Rec. Analog 100 Units/ML 3 ML Pen SUBCUT SCH (08:37)
[2024-07-15] MEDS: Bumetanide 2.5 MG, Bumetanide 0.5 MG IVPUSH SCH (17:21)
[2024-07-16 05:53] LABS: HEMATOCRIT 27.9 % (38.4-49.7); HEMOGLOBIN 9.1 g/dL (12.9-16.9); MEAN CORPUSCULAR HEMOGLOBIN 28.3 pg (31.6-35.5); MEAN CORPUSCULAR HGB CONC 32.6 g/dL (31.6-35.5); MEAN CORPUSCULAR VOLUME 86.6 fL (81.4-99.0); RED BLOOD CELL COUNT 3.22 M/uL (4.14-5.76); WHITE BLOOD CELL COUNT,WBC 8.3 K/uL (3.2-11.0)
[2024-07-16 06:09] LABS: CALCIUM 7.8 mg/dL (8.5-10.1); CREATININE 3.1 mg/dL (0.8-1.3); EST CRCL DRUG DOSING (CG) 24.3 mL/min; POTASSIUM,K 3.9 mmol/L (3.6-5.2)
[2024-07-16 06:10] LABS: ANION GAP 14.9 mmol/L (5.0-14.0); INR 1.2; PROTHROMBIN TIME 11.9 sec (9.2-10.6)
[2024-07-16] MEDS ORDERED: Warfarin 5 MG Tab PO SCH (13:00)
[2024-07-16] MEDS: Warfarin 5 MG, Warfarin 2.5 MG PO SCH (13:39)
[2024-07-17] MEDS: Ondansetron 4 MG Tab.DIS PO PRN (06:01)
[2024-07-18 06:22] LABS: HEMATOCRIT 28.8 % (38.4-49.7); HEMOGLOBIN 9.3 g/dL (12.9-16.9); MEAN CORPUSCULAR HEMOGLOBIN 28.6 pg (31.6-35.5); MEAN CORPUSCULAR HGB CONC 32.3 g/dL (31.6-35.5); MEAN CORPUSCULAR VOLUME 88.6 fL (81.4-99.0); RED BLOOD CELL COUNT 3.25 M/uL (4.14-5.76); WHITE BLOOD CELL COUNT,WBC 7.7 K/uL (3.2-11.0)
[2024-07-18 06:24] LABS: CALCIUM 8.4 mg/dL (8.5-10.1); CREATININE 3.4 mg/dL (0.8-1.3); EST CRCL DRUG DOSING (CG) 22.15 mL/min; POTASSIUM,K 4.2 mmol/L (3.6-5.2)
[2024-07-18 06:26] LABS: ANION GAP 14.2 mmol/L (5.0-14.0)
[2024-07-18 06:28] LABS: INR 1.9; PROTHROMBIN TIME 19.4 sec (9.2-10.6)
[2024-07-18 13:43] LABS: CORONAVIRUS COVID-19 NAA NEGATIVE (NEGATIVE); INFLUENZA A NAA POSITIVE (NEGATIVE); INFLUENZA B NAA NEGATIVE (NEGATIVE); RESPIRATORY SYNCYTIAL VIR NAA NEGATIVE (NEGATIVE)
[2024-07-18] MEDS: cefTRIAXone 1 GM in Sodium Chloride 0.9% 50 ML IV SCH (15:16)
[2024-07-18] MEDS: Oseltamivir 30 MG Cap PO SCH (15:17)
[2024-07-18] MEDS: Doxycycline 100 MG in Sodium Chloride 0.9% 100 ML IV SCH (16:02)
[2024-07-19 04:44] LABS: HEMATOCRIT 29.2 % (38.4-49.7); HEMOGLOBIN 9.1 g/dL (12.9-16.9); MEAN CORPUSCULAR HEMOGLOBIN 27.8 pg (31.6-35.5); MEAN CORPUSCULAR HGB CONC 31.2 g/dL (31.6-35.5); MEAN CORPUSCULAR VOLUME 89.3 fL (81.4-99.0); RED BLOOD CELL COUNT 3.27 M/uL (4.14-5.76); WHITE BLOOD CELL COUNT,WBC 6.1 K/uL (3.2-11.0)
[2024-07-19 04:59] LABS: CALCIUM 8.3 mg/dL (8.5-10.1); EST CRCL DRUG DOSING (CG) 21.52 mL/min
[2024-07-19 05:02] LABS: INR 2.9; PROTHROMBIN TIME 28.6 sec (9.2-10.6)
[2024-07-19 05:05] LABS: CREATININE 3.5 mg/dL (0.8-1.3)
[2024-07-19] MEDS: Warfarin 2.5 MG Tab PO ONE (13:57)
[2024-07-19] MEDS: Potassium Chloride 20 MEQ Tab.ER PO ONE (17:53)
[2024-07-20 05:24] LABS: CALCIUM 7.7 mg/dL (8.5-10.1); CREATININE 3.3 mg/dL (0.8-1.3); EST CRCL DRUG DOSING (CG) 22.82 mL/min; MAGNESIUM 1.7 mg/dL (1.8-2.4); POTASSIUM,K 4.2 mmol/L (3.6-5.2)
[2024-07-20 05:25] LABS: INR 3.2; PROTHROMBIN TIME 31.1 sec (9.2-10.6)
[2024-07-20 05:47] LABS: ANION GAP 17.2 mmol/L (5.0-14.0)
[2024-07-20] MEDS: Magnesium Oxide 400 MG Tab PO SCH (08:51)
[2024-07-20] MEDS: Magnesium Sulf/Wat 2 GM/50 mL 2 GM in Premix Bag 1 BAG IV SCH (08:56)
[2024-07-20] MEDS: Warfarin 2.5 MG Tab PO ONE (13:47)
[2024-07-20] MEDS: Docusate Sodium 100 MG Cap PO PRN (21:36)
[2024-07-20] MEDS: Acetaminophen 325 MG Tab PO PRN (21:36)
[2024-07-21 04:46] LABS: CALCIUM 7.4 mg/dL (8.5-10.1); CREATININE 3.3 mg/dL (0.8-1.3); EST CRCL DRUG DOSING (CG) 22.82 mL/min; MAGNESIUM 1.9 mg/dL (1.8-2.4); POTASSIUM,K 3.7 mmol/L (3.6-5.2)
[2024-07-21 04:49] LABS: ANION GAP 11.7 mmol/L (5.0-14.0)
[2024-07-21 04:50] LABS: INR 2.8; PROTHROMBIN TIME 27.4 sec (9.2-10.6)
[2024-07-21] MEDS ORDERED: Sodium Phosphate,Monobasic/Sodium Phosphate,Dibasic Enema 133 ML Bottle RECTAL PRN (12:17)
[2024-07-21] MEDS: Bisacodyl 10 MG Supp RECTAL ONE (12:50)
[2024-07-21] MEDS: Polyethylene Glycol 3350 Powder 17 GM Packet PO ONE (12:51)
[2024-07-21] MEDS: Warfarin 2.5 MG Tab PO SCH (14:07)
[2024-07-22 06:17] LABS: CALCIUM 7.6 mg/dL (8.5-10.1); CREATININE 3.2 mg/dL (0.8-1.3); EST CRCL DRUG DOSING (CG) 23.54 mL/min; POTASSIUM,K 3.9 mmol/L (3.6-5.2); PROTHROMBIN TIME 29.6 sec (9.2-10.6)
[2024-07-22 06:18] LABS: ANION GAP 11.9 mmol/L (5.0-14.0)
[2024-07-22] MEDS: Bumetanide 1 MG/4 ML MDV IVPUSH SCH (07:52)
[2024-07-22] MEDS ORDERED: Bumetanide 1 MG/4 ML MDV IVPUSH SCH (09:00)
[2024-07-22] MEDS: Warfarin 2.5 MG Tab PO SCH (14:48)
[2024-07-22] MEDS ORDERED: Doxycycline 100 MG in Sodium Chloride 0.9% 100 ML IV SCH (19:45)
[2024-07-22] MEDS: Bumetanide 1 MG Tab PO SCH (20:19)
[2024-07-22] MEDS: Doxycycline 100 MG Cap PO SCH (20:20)
[2024-07-22] MEDS: Cefdinir 300 MG Cap PO SCH (20:36)
[2024-07-23 06:13] LABS: CALCIUM 8.2 mg/dL (8.5-10.1); CREATININE 2.9 mg/dL (0.8-1.3); EST CRCL DRUG DOSING (CG) 25.97 mL/min; INR 2.7; MAGNESIUM 1.8 mg/dL (1.8-2.4); PROTHROMBIN TIME 26.4 sec (9.2-10.6)
[2024-07-24 06:06] LABS: INR 2.4
[2024-07-24] MEDS ORDERED: Warfarin 2.5 MG Tab PO SCH (13:00)
== END 2024-07-24 12:00 | disposition home or self-care (01) | DRG 291 ==
LOC: JP.ED 12:57 → JP.MS 19:12
PROVIDERS: ADMIT Internal Medicine; ATTEND Hospitalist
DX: I50.20 Unspecified systolic (congestive) heart failure (principal); I50.23 Acute on chronic systolic (congestive) heart failure; J10.08 Influenza due to other identified influenza virus with other specified pneumonia; J15.9 Unspecified bacterial pneumonia; N18.9 Chronic kidney disease, unspecified; J96.01 Acute respiratory failure with hypoxia; I27.82 Chronic pulmonary embolism; N18.4 Chronic kidney disease, stage 4 (severe); N17.9 Acute kidney failure, unspecified; J44.0 Chronic obstructive pulmonary disease with (acute) lower respiratory infection; H54.7 Unspecified visual loss; E78.00 Pure hypercholesterolemia, unspecified; F41.9 Anxiety disorder, unspecified; F32.A Depression, unspecified; E11.22 Type 2 diabetes mellitus with diabetic chronic kidney disease; E80.6 Other disorders of bilirubin metabolism; E88.09 Other disorders of plasma-protein metabolism, not elsewhere classified; G89.4 Chronic pain syndrome; I51.3 Intracardiac thrombosis, not elsewhere classified; F43.10 Post-traumatic stress disorder, unspecified; D63.1 Anemia in chronic kidney disease; Z79.899 Other long term (current) drug therapy; Z79.4 Long term (current) use of insulin; Z79.01 Long term (current) use of anticoagulants; Z79.52 Long term (current) use of systemic steroids; Z87.81 Personal history of (healed) traumatic fracture; Z98.890 Other specified postprocedural states
CPT/HCPCS: 0241U; 36415; 71045; 71046; 80048; 80053; 81001; 82947; 83735; 83880; 84484; 85025; 85027; 85610; 96374; 99222; 99231; 99232; 99238; 99285; A9270-GY; J0696; J1815; J1815-GY; J1939; J2470; J3475; J3490; Q0162

== ENCOUNTER 2024-08-19 18:52 | Emergency (ER) | payer MEDICARE ==
[2024-08-19 20:19] LABS: BASOPHILS ABSOLUTE AUTO 0.02 K/uL (0.00-0.10); BASOPHILS PERCENT AUTO 0.2 % (0.1-1.3); EOSINOPHILS ABSOLUTE AUTO 0.07 K/uL (0.00-0.40); EOSINOPHILS PERCENT AUTO 0.8 % (0.0-5.4); HEMATOCRIT 29.7 % (38.4-49.7); HEMOGLOBIN 9.8 g/dL (12.9-16.9); IMMATURE GRAN ABSOLUTE AUTO 0.05 K/uL (0.00-0.23); IMMATURE GRAN PERCENT AUTO 0.6 % (0.0-0.7); LYMPHOCYTES ABSOLUTE AUTO 0.96 K/uL (0.8-3.3); LYMPHOCYTES PERCENT AUTO 10.8 % (11.4-47.7); MEAN CORPUSCULAR HEMOGLOBIN 28.9 pg (31.6-35.5); MEAN CORPUSCULAR VOLUME 87.6 fL (81.4-99.0); MONOCYTES ABSOLUTE AUTO 1.16 K/uL (0.20-0.90); MONOCYTES PERCENT AUTO 13.1 % (3.3-12.6); NEUTROPHILS ABSOLUTE AUTO 6.61 K/uL (1.0-7.6); NEUTROPHILS PERCENT AUTO 74.5 % (40.0-78.1); PLATELET COUNT,PLT 191 K/uL (130-375); RED BLOOD CELL COUNT 3.39 M/uL (4.14-5.76); WHITE BLOOD CELL COUNT,WBC 8.9 K/uL (3.2-11.0)
[2024-08-19 20:25] LABS: INR 1.5; PROTHROMBIN TIME 15.5 sec (9.2-10.6)
[2024-08-19 20:31] LABS: A/G RATIO 0.5 (1.2-2.2); ALANINE AMINOTRANSFERASE,ALT 27 U/L (12-78); ALBUMIN 2.5 g/dL (3.4-5.0); ALKALINE PHOSPHATASE 540 U/L (46-116); ASPARTATE AMNIOTRANSFERASE,AST 36 U/L (15-37); BILIRUBIN TOTAL 1.9 mg/dL (0.2-1.0); BLOOD UREA NITROGEN,BUN 74 mg/dL (7-18); CALCIUM 8.1 mg/dL (8.5-10.1); CARBON DIOXIDE,CO2 23 mmol/L (21-32); CHLORIDE,CL 101 mmol/L (100-108); EST CRCL DRUG DOSING (CG) 21.52 mL/min; ESTIMATED GFR 20 mL/min (>60); GLUCOSE RANDOM 209 mg/dL (74-106); PROTEIN TOTAL,TP 7.2 g/dL (6.4-8.2); SODIUM,NA 137 mmol/L (140-148); TROPONIN I HIGH SENSITIVITY 43.1 pg/mL (<=60.3)
[2024-08-19 20:33] LABS: CREATININE 3.5 mg/dL (0.8-1.3)
[2024-08-19] MEDS: Furosemide 40 MG/4 ML VIAL IVPUSH ONE (20:36)
[2024-08-19] MEDS: traMADol 50 MG Tab PO ONE (21:22)
[2024-08-20] MEDS: Ondansetron 4 MG/2 ML SDV IVPUSH ONE (09:10)
[2024-08-20] MEDS: Furosemide 40 MG/4 ML VIAL IVPUSH ONE (09:12)
== END 2024-08-20 18:30 ==
LOC: JP.ED 18:52
DX: I25.10 Atherosclerotic heart disease of native coronary artery without angina pectoris (principal); N18.4 Chronic kidney disease, stage 4 (severe); I50.22 Chronic systolic (congestive) heart failure; R94.5 Abnormal results of liver function studies; J44.9 Chronic obstructive pulmonary disease, unspecified; E78.00 Pure hypercholesterolemia, unspecified; E11.22 Type 2 diabetes mellitus with diabetic chronic kidney disease; Z79.4 Long term (current) use of insulin; Z79.01 Long term (current) use of anticoagulants; Z79.899 Other long term (current) drug therapy
CPT/HCPCS: 36415; 71045; 71045-26; 80053; 83605; 83880; 84484; 85025; 85610; 93005; 93010; 96374; 96375; 96376; 99285; 99285-25; A9270-GY; J1940; J2405

== ENCOUNTER 2024-09-30 13:29 | Emergency (ER) | payer MEDICARE | END 2024-09-30 15:25 | disposition left against medical advice (07) | LOC: JP.ED 13:29 | DX: Z53.21 Procedure and treatment not carried out due to patient leaving prior to being seen by health care provider (principal) ==

== ENCOUNTER 2025-04-24 15:58 | Emergency (ER) | payer MEDICARE, MEDICAID ==
[2025-04-24 17:13] LABS: BASOPHILS ABSOLUTE AUTO 0.03 K/uL (0.00-0.10); BASOPHILS PERCENT AUTO 0.4 % (0.1-1.3); EOSINOPHILS ABSOLUTE AUTO 0.19 K/uL (0.00-0.40); EOSINOPHILS PERCENT AUTO 2.3 % (0.0-5.4); IMMATURE GRAN ABSOLUTE AUTO 0.04 K/uL (0.00-0.23); IMMATURE GRAN PERCENT AUTO 0.5 % (0.0-0.7); LYMPHOCYTES ABSOLUTE AUTO 1.24 K/uL (0.8-3.3); LYMPHOCYTES PERCENT AUTO 14.7 % (11.4-47.7); MONOCYTES ABSOLUTE AUTO 0.85 K/uL (0.20-0.90); MONOCYTES PERCENT AUTO 10.1 % (3.3-12.6); NEUTROPHILS ABSOLUTE AUTO 6.08 K/uL (1.0-7.6); NEUTROPHILS PERCENT AUTO 72.0 % (40.0-78.1); PLATELET COUNT,PLT 220 K/uL (130-375); RED BLOOD CELL COUNT 3.28 M/uL (4.14-5.76); WHITE BLOOD CELL COUNT,WBC 8.4 K/uL (3.2-11.0)
[2025-04-24 17:29] LABS: INR 1.0
[2025-04-24 17:33] LABS: A/G RATIO 0.5 (1.2-2.2); ALANINE AMINOTRANSFERASE,ALT 38 U/L (12-78); ASPARTATE AMNIOTRANSFERASE,AST 32 U/L (15-37); BILIRUBIN TOTAL 1.1 mg/dL (0.2-1.0); BLOOD UREA NITROGEN,BUN 33 mg/dL (7-18); CARBON DIOXIDE,CO2 31 mmol/L (21-32); CHLORIDE,CL 98 mmol/L (100-108); EST CRCL DRUG DOSING (CG) 20.68 mL/min; ESTIMATED GFR 19 mL/min (>60); GLUCOSE RANDOM 268 mg/dL (74-106); POTASSIUM,K 3.6 mmol/L (3.6-5.2); PROTEIN TOTAL,TP 6.2 g/dL (6.4-8.2); SODIUM,NA 135 mmol/L (140-148)
[2025-04-24 17:37] LABS: CREATININE 3.6 mg/dL (0.8-1.3)
== END 2025-04-24 18:55 | disposition home or self-care (01) ==
LOC: JP.ED 15:58
DX: R10.84 Generalized abdominal pain (principal); E11.22 Type 2 diabetes mellitus with diabetic chronic kidney disease; J44.9 Chronic obstructive pulmonary disease, unspecified; N18.9 Chronic kidney disease, unspecified; Z79.899 Other long term (current) drug therapy; Z79.01 Long term (current) use of anticoagulants
CPT/HCPCS: 36415; 74176; 80053; 85025; 85610; 99284